=== PATIENT | male | born 1955 | race African-American/Black ===

== ENCOUNTER 2017-01-24 10:48 | Emergency (ER) | payer OTHER ==
[~2017-01-24] VITALS: Ht 177.8 cm; Wt 80.7 kg
[~2017-01-24 10:48] MED LIST: ADVIL200 MG PO; ALBUTEROL SULF8.5 GM IH; ALEVE220 M2 PO; FLEXERIL10 MG PO; FLONASE16 G1 BOTH NARES; MOTRIN800 MG PO; MUCUS RELIEF600 M1 PO; PREDNISONE10 M1 PO; ROBITUSSIN NIG118 ML PO; TRAMADOL HCL50 MG PO
[2017-01-24 13:00] LABS: HEMATOCRIT 41.3 % (38.0-50.0); MCH 30.9 PG (29.0-34.0); MCHC 33.7 G/DL (30.0-36.0); MCV 91.8 FL (86-99); MEAN PLAT.VOLUME 8.8 uM^3 (9.0-12.4); PLATELET COUNT 207 K/uL (156-360); RBC DIS.WIDTH-CV 13.1 % (11.8-14.6); RBC DIS.WIDTH-SD 44.1 % (39-53); WHITE BLOOD COUNT 5.1 K/uL (4.1-10.2)
[2017-01-24 13:04] LABS: BILIRUBIN NEGATIVE; BLOOD NEGATIVE; COLOR YELLOW ((YELLOW)); GLUCOSE (STRIP) NEGATIVE; KETONES NEGATIVE; LEUKOCYTES NEGATIVE; NITRITE NEGATIVE; PROTEIN (STRIP) NEGATIVE; SPECIFIC GRAVITY 1.008 (1.000-1.030)
[2017-01-24 13:07] LABS: ADD MIUA? NO
[2017-01-24 13:09] LABS: CHLORIDE 104 mEq/L (99-109); POTASSIUM 3.6 mEq/L (3.7-5.4); SODIUM 138 mEq/L (136-147)
[2017-01-24 13:11] LABS: GLUCOSE 83 mg/dL (70-99)
[2017-01-24 13:13] LABS: ANION GAP 10 MEQ/L (2-14); TOTAL BILIRUBIN 0.7 mg/dL (0.0-1.0)
[2017-01-24 13:15] LABS: ALKALINE PHOSPHATASE 56 IU/L (3-129); GFR ESTIMATE (CALCULATED) > 59 mL/min/
[2017-01-24 13:16] LABS: UREA NITROGEN (BUN) 7 mg/dL (9-23)
[2017-01-24 13:19] LABS: LIPASE 26 U/L (1.0-51.0)
[2017-01-24] MEDS ORDERED: LIDODERM 5% P1 PATCH TD (13:37)
[2017-01-24 14:31] VITALS: BP 133/94
== END 2017-01-24 14:32 | disposition home or self-care (01) ==
LOC: EME 10:48
PROVIDERS: Nurse Practitioner Family
DX: S39.012A Strain of muscle, fascia and tendon of lower back, initial encounter (principal); X50.9XXA Other and unspecified overexertion or strenuous movements or postures, initial encounter; Y99.0 Civilian activity done for income or pay; R79.89 Other specified abnormal findings of blood chemistry; Z96.651 Presence of right artificial knee joint
CPT/HCPCS: 74000; 80053; 81003; 83690; 85027; 99281; 99283

== ENCOUNTER → 2017-03-24 | Outpatient (CLI) | payer OTHER ==
[~2017-03-24] MED LIST changes: +LIDODERM 5% P1 PATCH TD
== END | disposition home or self-care (01) ==
LOC: CDC 14:00
DX: M16.12 Unilateral primary osteoarthritis, left hip (principal)
CPT/HCPCS: 93000

== ENCOUNTER 2017-03-29 20:54 | Inpatient (IN) | payer OTHER ==
[~2017-03-29] VITALS: Ht 177.8 cm; Wt 78.5 kg
[2017-03-30 07:27] VITALS: BP 156/97
[2017-03-30 13:04] LABS: HEMATOCRIT 35.2 % (38.0-50.0); MCV 92.1 FL (86-99)
[2017-03-30 14:13] VITALS: BP 142/94
[2017-03-30 15:34] VITALS: BP 129/83
[2017-03-30 17:46] VITALS: BP 127/80
[2017-03-30 20:18] VITALS: BP 120/79
[2017-03-30 23:54] VITALS: BP 120/83
[2017-03-31 03:49] VITALS: BP 134/80
[2017-03-31 06:23] LABS: HEMATOCRIT 35.1 % (38.0-50.0); MCV 93.1 FL (86-99)
[2017-03-31 07:56] VITALS: BP 139/64
[2017-03-31 11:59] VITALS: BP 133/81
[2017-03-31 16:03] VITALS: BP 128/79
[2017-03-31 20:08] VITALS: BP 124/84
[2017-03-31 23:32] VITALS: BP 131/81
[2017-04-01 03:46] VITALS: BP 116/75
[2017-04-01 07:35] VITALS: BP 123/63
[2017-04-01] MEDS ORDERED: OXYCODONE HCL5 MG PO (09:28)
[2017-04-01] MEDS ORDERED: ELIQUIS2.5 MG PO (09:28)
[2017-04-01 11:41] VITALS: BP 132/83
== END 2017-04-01 14:06 | disposition home health service (06) | DRG 470 ==
LOC: 2SOUTH → ENRESERV 20:54 → 3WEST 03-30 06:43 → 2SOUTH 03-30 06:43 → 3WEST 03-30 13:48 → 2SOUTH 03-30 15:23 → 3WEST 04-01 14:06
PROVIDERS: Orthopaedic Surgery
PROC: 0SRB03A Replacement of Left Hip Joint with Ceramic Synthetic Substitute, Uncemented, Open Approach (ICD-10-PCS; principal; 2017-03-30)
DX: M16.12 Unilateral primary osteoarthritis, left hip (principal); Z96.651 Presence of right artificial knee joint; I10 Essential (primary) hypertension
CPT/HCPCS: 85014; 85018; J0690; J1885; J2250; J2405; J3010; J7050; J7120; S0020